=== PATIENT | male | born 1980 | race Caucasian/White ===

== ENCOUNTER 2024-05-17 08:53 | Emergency (ER) | payer OTHER, SELFPAY ==
--- NOTE | 2024-05-17 09:15 | ED.URI ---
HPI - URI/Sore Throat General Chief Complaint: Nausea/Vomiting/Diarrhea Stated Complaint: flu like Source: patient and RN notes reviewed Mode of arrival: ambulatory Limitations: no limitations History of Present Illness HPI Narrative: 44-year-old male presented for complaint of nausea, vomiting, diarrhea and subjective fever. Onset yesterday. Last emesis just prior to arrival. Says younger children have similar symptoms. Patient denies abdominal pain, hematochezia, melena, cough, shortness of breath, sore throat, or lethargy. Took leftover ondansetron and Pepto but this did not help. MD elicited complaint: cough Related Data Allergies Allergy/AdvReac Type Severity Reaction Status Date / Time No Known Allergies Allergy Verified 05/17/24 09:30 Review of Systems Review of Systems: ROS per HPI All systems reviewed & are unremarkable except as noted in HPI and below PMFSH Past Medical History Medical History (Updated 05/17/24 @ 09:41 by Rosaura Elizondo, RICKI) Hypertension Comments At time of signature, I have reviewed and agree with nursing past medical, surgical, social and family history unless otherwise noted. Please see nursing chart for further information. There is no relevant family history pertinent to the presenting complaint Exam Narrative: GENERAL: mildly Ill-appearing, nontoxic no acute distress. EYES: conjunctivae clear ENT: Mucous membranes moist. TM pearly hess with dull light reflex bilaterally; no tragal tenderness. Oropharynx not erythematous without lesions or exudate, no drooling, no hoarseness, no trismus, uvula midline. CHEST: Clear to auscultation, breath sounds equal. HEART: Regular rate and rhythm. ABD: Soft, nontender, positive bowel sounds SKIN: Warm, dry NEURO: Alert and oriented x3. Course Course Emergency Course: Patient is aware of diagnosis, understands and agrees to treatment plan. Anticipatory guidance given. Patient agrees to follow-up as directed and is aware of reasons to seek care at the emergency department. Portions of this record may have been created with voice recognition software Level of Care: Express Care Visit Vital Signs Vital signs: Vital Signs Temperature 97.6 F 05/17/24 09:17 Pulse Rate 103 H 05/17/24 09:17 Respiratory Rate 18 05/17/24 09:17 Blood Pressure 116/73 05/17/24 09:17 Pulse Oximetry 98 05/17/24 09:17 Oxygen Delivery Room Air 05/17/24 09:17 Temperature 97.6 F 05/17/24 09:17 Pulse Rate 103 H 05/17/24 09:17 Respiratory Rate 18 05/17/24 09:17 Blood Pressure 116/73 05/17/24 09:17 Pulse Oximetry 98 05/17/24 09:17 Oxygen Delivery Room Air 05/17/24 09:17 reviewed MDM - URI/Sore Throat MDM Narrative Medical decision making narrative: Discussed physical exam findings consistent with viral syndrome. Patient stated ondansetron does not work after given in clinic today. Rx metoclopramide and famotidine sent. Advised supportive measures and signs/symptoms to go to the ER. Pt is appropriate for outpt treatment and f/u. Request work note for the remainder of the week. Differential Diagnosis Differential diagnosis: Likely upper respiratory infection, sinusitis, viral infection, influenza and other (gastroenteritis) Lab Data Labs: Lab Results 05/17/24 Range/Units 09:35 POC Influenza A Ag Negative (Negative) POC Influenza B Ag Negative (Negative) POC SARS CoV-2 Ag Negative (Negative) Discharge Plan Discharge Clinical Impression: Nausea vomiting and diarrhea Patient Disposition: Home, Self-Care Condition: Stable Instructions: Gastroenteritis (ED) Additional Instructions: Flu and COVID negative Stay hydrated. Take small sips of fluid containing electrolytes frequently. Clear liquids (broth, jello, tea, sprite, pedialyte) [place] foods (bananas, rice, applesauce, toast, crackers) Avoid fatty, greasy, fried or spicy foods. Limit dairy until symptoms are improved. [id number] Imodium according to package directions for diarrhea Recommend probiotic such as align or lactobacillus to help with symptoms. You should go to the hospital if you experience persistent nausea and vomiting that does not resolve and does not allow you to tolerate any food or fluids, fevers, increasing abdominal pain, persistent diarrhea, dizziness, fainting, or for any other concerns. Follow up with primary care provider in 3 days. Patient Language: Yakut Prescriptions: New famotidine [Pepcid] 40 mg tablet 40 mg PO DAILY Qty: 10 0RF metoclopramide HCl 10 mg tablet 10 mg PO Q6H PRN (Reason: nausea and vomiting) Qty: 10 0RF Follow-up/Referrals: STEPHEN,MAGGI, M.D. [Primary Care Provider] - Stand Alone Forms: Work/School Release IP Time of Disposition: 09:40
[2024-05-17 09:17] VITALS: BP 116/73; PULSE 103; RESP 18; TEMP 36.4; O2SAT 98
--- OUTSIDE RECORDS SUMMARY | 2024-05-17 09:21 | XMS_ITS | Clinical Summary ---
Author Organization [facility] Address [facility] [place] [address] Care Team Providers Care Repairer Controller Tester Name Role Phone Uriel Osborn MD Primary Care Provider + Allergies No known active allergies Medications clindamycin (CLEOCIN T) 1 % external solutionIndication s:Primary hypertension,Folli culitis Apply topically 2 (two) times daily. 60 mL 1 4 Active lisinopril (PRINIVIL) 20 MG tabletIndications: Primary hypertension TAKE ONE TABLET BY MOUTH DAILY 90 tablet 1 4 Active atorvastatin (LIPITOR) 20 MG tabletIndications: Hyperlipidemia, unspecified hyperlipidemia type TAKE ONE TABLET BY MOUTH DAILY 90 tablet 1 4 Active ondansetron (ZOFRAN-ODT) 4 MG disintegrating tabletIndications: Nausea and vomiting, unspecified vomiting type Take 1 tablet (4 mg total) by mouth 4 (four) times daily as needed for Nausea. 20 tablet 5 Active Active Problems Problem Noted Date Diagnosed Date Primary hypertension 04/25/2024 Dyslipidemia 04/25/2024 Encounters Date Type Department Care Team Description 04/25/2024 9:40 AM SHOE PARTS CASER Office Visit [facility] [address] [place] [address] Ofe Parker, MYLES Body Aches (X 1 day/); Cough; Vomiting; Diarrhea; Sore Throat 04/25/2024 Travel 03/17/2024 Telephone [facility] [address] [place] [address] Uriel Osborn MD Referral 03/15/2024 Telephone [facility] [address] [facility] [place] [address] Uriel Osborn MD Results 03/14/2024 4:13 PM SHOE PARTS CASER - 03/14/2024 11:59 PM SHOE PARTS CASER Hospital Encounter [facility] [address] [place] [address] Uriel Osborn MD Discharge Disposition: Home or Self Care (Routine Discharge) 03/14/2024 4:00 PM SHOE PARTS CASER Office Visit [facility] [address] [facility] [place] [address] Uriel Osborn MD Hypertension Follow Up; Other (C/O headaches/); Referral Request (vasectomy) 03/14/2024 Travel 03/04/2024 Scan [facility] Scanned, [facility] from Last 3 Months Immunizations Name Administration Dates Next Due Influenza Adult (Generic) 01/24/2022,01/02/2021 MODERNA COVID-19 BIVALENT (12+), MRNA, LNP-S, PF 01/24/2022 MODERNA COVID-19 (12+) MRNA, LNP-S, PF, 100 MCG/ 0.5 ML DOSE 07/03/2020,06/05/2020 MODERNA COVID-19 ([employer] JOSE), MRNA, LNP-S, PF, 50 MCG/ 0.25 ML DOSE 03/13/2021 Family History Medical History Relation Comments Diabetes Brother Diabetes Maternal Uncle Relation Status Comments Brother Maternal Uncle Social History Tobacco Use Types Packs/Day Years Used Date Smoking Tobacco: Former Cigarettes Passive Smoke Exposure: Past Tobacco Cessation:Counseling Given: No PHQ-2 Answer Date Recorded Patient Health Questionnaire-2 Score 0 04/25/2024 Sex and Gender Information Value Date Recorded Sex Assigned at Not on file Legal Sex Male 12:05 PM CDT Gender Identity Not on file Sexual Orientation Not on file Last Filed Vital Signs Vital Sign Reading Time Taken Comments Blood Pressure 122/71 04/25/2024 9:42 AM SHOE PARTS CASER Pulse 70 04/25/2024 9:42 AM SHOE PARTS CASER Temperature 36.9 C (98.4 F) 04/25/2024 9:42 AM SHOE PARTS CASER Respiratory Rate 20 04/25/2024 9:42 AM SHOE PARTS CASER Oxygen Saturation 98% 04/25/2024 9:42 AM SHOE PARTS CASER Inhaled Oxygen Concentration - - Weight 104.4 kg (230 lb 2 oz) 04/25/2024 9:42 AM SHOE PARTS CASER Height 177.8 cm (5' 10 ) 04/25/2024 9:42 AM SHOE PARTS CASER Body Mass Index 33.02 04/25/2024 9:42 AM SHOE PARTS CASER Plan of Treatment Health Maintenance Due Date Last Done Comments Annual Physical 1985 Hepatitis C 2000 DTaP, Tdap and Td Vaccines (1 - Tdap) 2001 Hepatitis B Vaccines (1 of 3 - 19+ 3-dose series) 2001 COVID-19 Vaccine ( - season) 2023 01/24/2022, 03/13/2021, 07/03/2020, Additional history exists Influenza Adult (#1) 2023 01/24/2022, 01/03/20 21 PHQ-2 ([facility]) Completed 04/25/2024 HPV Vaccines Aged Out No longer eligi ble based on patient's age to complete this topic Meningococcal B Vaccine Aged Out No l onger eligible based on patient's age to complete this topic Meningococcal Vaccine Aged Out No lacy rossana eligible based on patient's age to complete this topic Pneumococcal Vaccine: Pediatrics (0 to 5 Years) and At-Risk Patients (6 to 64 Years) Aged Out No longer eligible based on patient's age to complete this topic RSV Immunizations Under 20 Months Aged Out No longer eligible based on patient's age to complete this topic Procedures Procedure Name Priority Date/Time Associated Diagnosis Comments STREP A RAPID Routine 04/25/2024 Viral gastroenteritis CORONAVIRUS (COVID-19) INFLUENZA A & B ANTIGEN IA PANEL Routine 04/25/2024 Viral gastroenteritis LIPID PANEL Routine 03/14/2024 4:14 PM SHOE PARTS CASER Hyperlipidemia, unspecified hyperlipidemia type COMPREHENSIVE METABOLIC PANEL Routine 03/14/2024 4:14 PM SHOE PARTS CASER Hyperlipidemia, unspecified hyperlipidemia type from Last 3 Months Results * CORONAVIRUS (COVID-19) INFLUENZA A & B ANTIGEN IA PANEL (04/25/2024) CORONAVIRUS ANTIGEN IA NEGATIVE NEGATIVE [facility] ([address]), [place] INFLUENZA A NEGATIVE NEGATIVE [facility] ([address]01), [place] INFLUENZA B NEGATIVE NEGATIVE [facility] ([address]), [place] Internal Control: VALID VALID [facility] ([address]), [place] NASAL STRUCTURE / Unknown 04/25/2024 us Ofe Parker NP MICROBIOLOGY - GENERAL ORDERABL ES Final Result [facility] ([address]), [place] [facility] [place] [address], [place] [phone] * STREP A RAPID (04/25/2024) Pathologist [facility] RAPID STREP TEST NEGATIVE NEGATIVE [facility] ([facility]), [place] Internal Control: VALID VALID [facility] ([address]01), [place] STRUCTURE OF ANTERIOR PORTION OF NECK / Unknown 04/25/2024 us Ofe Parker NP MICROBIOLOGY - GENERAL ORDERABL ES Final Result [facility] ([address]), [place] [facility] [place] [address], [place] [phone] * (ABNORMAL) COMPREHENSIVE METABOLIC PANEL (03/14/2024 4:14 PM SHOE PARTS CASER) Pathologist [facility] GLUCOSE 104(H) 70 - 99 MG/DL 03/14/2024 5:02 PM SHOE PARTS CASER [facility] BUN 10 7 - 18 MG/DL 03/14/2024 5:02 PM SHOE PARTS CASER [facility] CREATININE S/P/B 1.00 0.7 - 1.3 MG/DL 03/14/2024 5:02 PM [facility] SODIUM S/P/B 136 136 - 145 MMOL/L 03/14/2024 5:02 PM [facility] POTASSIUM S/P/B 3.6 3.5 - 5.1 MMOL/L 03/14/2024 5:02 PM [facility] CHLORIDE S/P/B 100 100 - 108 MMOL/L 03/14/2024 5:02 PM [facility] CO2 30.1 21 - 32 MMOL/L 03/14/2024 5:02 PM [facility] CALCIUM S/P/B 8.8 8.5 - 10.1 MG/DL 03/14/2024 5:02 PM [facility] BILIRUBIN TOTAL S/P/B 0.3 0.2 - 1.2 MG/DL 03/14/2024 5:02 PM [facility] Comment: THIS ASSAY IS NOT RECOMMENDED FOR PATIENTS UNDERGOING TREATMENT WITH ELTROMBOPAG DUE TO THE POTENTIAL FOR FALSELY ELEVATED RESULTS. TOTAL PROTEIN S/P/B 7.5 6.4 - 8.2 G/DL 03/14/2024 5:02 PM [facility] ALBUMIN S/P/B 4.1 3.4 - 5.0 G/DL 03/14/2024 5:02 PM [facility] AST 16 15 - 37 U/L 03/14/2024 5:02 PM [facility] ALT 44 16 - 60 U/L 03/14/2024 5:02 PM [facility] ALKALINE PHOSPHATASE S/P/B 85 50 - 136 U/L 03/14/2024 5:02 PM [facility] ANION GAP 5.9 5 - 15 MMOL/L 03/14/2024 5:02 PM [facility] BUN CREATININE RATIO 10.0 6 - 26 03/14/2024 5:02 PM [facility] A/G RATIO 1.2 1.0 - 2.0 RATIO 03/14/2024 5:02 PM [facility] GFR ESTIMATE >90 >90 ML/MIN/1.7 3 M2 03/14/2024 5:02 PM [facility] Comment: NOTE: eGFR is not calculated for patients <18 years of age. This is an estimated GFR calculation using the new CKD EPI creatinine equation without race and so does not require a correction factor for race. This estimated GFR should not be used for calculating drug doses. 03/14/2024 4:14 PM SHOE PARTS CASER Uriel Osborn MD LABORATORY Final Re sult [facility] [address] [place] [address], * (ABNORMAL) LIPID PANEL (03/14/2024 4:14 PM SHOE PARTS CASER) CHOLESTEROL 171 <200 MG/DL 03/14/2024 5:02 PM [facility] TRIGLYCERIDES 214(H) <150 MG/DL 03/14/2024 5:02 PM [facility] HDL 44 >40.0 MG/DL 03/14/2024 5:02 PM [facility] LDL (CALCULATED) 84 <100 MG/DL 03/14/2024 5:02 PM [facility] NON HDL CHOLESTEROL 127 <130 MG/DL 03/14/2024 5:02 PM [facility] Comment: NOTE: WHEN THE TRIGLYCERIDES ARE >200 mg/dL, NON HDL C IS A SECONDARY TARGET OF THERAPY, WITH A GOAL 30 mg/dL HIGHER THAN THE IDENTIFIED LDL C GOAL. CHOL/HDL RATIO 3.9 0.0 - 4.5 03/14/2024 5:02 PM SHOE PARTS CASER [facility] VLDL CALCULATION 43 5 - 55 MG/DL 03/14/2024 5:02 PM SHOE PARTS CASER [facility] LIPID INTERPRETATION 03/14/2024 5:02 PM SHOE PARTS CASER [facility] Comment: [facility] CONCENSUS REPORT RECOMMENDATIONS: ADULT CHILD LOW RISK: CHOLESTEROL <200 <170 TRIGLYCERIDE <150 --- HDL >=60 --- LDL <100 <110 BORDERLINE: CHOLESTEROL 200-239 170-199 TRIGLYCERIDE 150-199 --- HDL 40-59 --- LDL 100-159 110-129 HIGH RISK: CHOLESTEROL >=240 >=200 TRIGLYCERIDE >=200 --- HDL <40 --- LDL >=160 >=130 03/14/2024 4:14 PM SHOE PARTS CASER Uriel Osborn MD LABORATORY Final Re sult [facility] [address] [place] [address], from Last 3 Months Insurance [facility] Care Teams Repairer Controller Tester Relationship Specialty Start Date End Date Uriel Osborn MD [address] [place] [address] PCP - General FAMILY PRACTICE 3/22/24
--- OUTSIDE RECORDS SUMMARY | 2024-05-17 09:21 | XMS_ITS | Continuity of Care Document ---
Author Organization [facility] Address [address] [place] [address] Phone Care Team Providers Care Relay Repairer Name Role Phone Unavailable Unavailable Unavailable Medications Medication Instructions Dosage Effective Dates (start - stop) Status Comments [place] 5 mg-325 mg Tab Take 1 or 2 tablet s by mouth every 6-8 hrs prn for pain. - Active Advance Directives Directive Yes / No Effective Date File Name No Information Encounters Encounter Description Practice Location Reason(s) For Visit Diagnoses Date Provider Providers Copied on Encounter [facility], [address] [place] [address], [id number], tel:[phone] [facility] No Information 9 No Information Referring Provider: [address], [place], [address]. tel:[phone] [facility], [address] [place] [address], [id number], tel:[phone] [facility] No Information 9 Raphael Rodriguez. [address] [place] [address], [id number], . tel:[phone] Referring Provider: [address], [place], [address]. tel:[phone] Family History Family Member Type Diagnosis Age At Onset No Information Payers Payer name Insurance type Covered libertarian ID Authoriza tion(s) [facility] CI [id number] Social History Type Description Quantity Date Captured Comments Sex Male Smoking Status No Information Chief Complaint And Reason For Visit No Information Reason For Referral Reason For Referral No Information History Of Present Illness Encounter Date Complaint History Of Prese nt Illness No Information Functional Status Date Functional Assessmen t No Information Instructions Date Instruction Additional Infor mation No Information Assessments Type Assessment Date No Information Patient Care Teams Name Effective Dates (start - stop) Status Members No Information
--- OUTSIDE RECORDS SUMMARY | 2024-05-17 09:31 | XMS_ITS | Continuity of Care Document ---
Author Organization [facility] Address [address] [place] [address] Phone Care Team Providers Care Java Developer Analyst Name Role Phone Unavailable Unavailable Unavailable Medications Medication Instructions Dosage Effective Dates (start - stop) Status Comments [place] 5 mg-325 mg Tab Take 1 or 2 tablet s by mouth every 6-8 hrs prn for pain. - Active Advance Directives Directive Yes / No Effective Date File Name No Information Encounters Encounter Description Practice Location Reason(s) For Visit Diagnoses Date Provider Providers Copied on Encounter [facility], [address] [place] [address], [id number], tel:[phone] [facility] No Information 9 No Information Referring Provider: [address], [place], [address]. tel:[phone] [facility], [address] [place] [address], [id number], tel:[phone] [facility] No Information 9 Raphael Rodriguez. [address] [place] [address], [id number], . tel:[phone] Referring Provider: [address], [place], [address]. tel:[phone] Family History Family Member Type Diagnosis Age At Onset No Information Payers Payer name Insurance type Covered constitution party ID Authoriza tion(s) [facility] CI [id number] Social History Type Description Quantity Date Captured [...]
[2024-05-17 09:37] LABS: EDCOVIDSCREEN Negative (Negative); EDINFLUASCREEN Negative (Negative); EDINFLUBSCREEN Negative (Negative)
[2024-05-17] MEDS: ONDANSETRON HCL ODT 4 MG TABLET SUBLINGUAL (09:44)
== END 2024-05-17 10:09 | disposition home or self-care (01) ==
PROVIDERS: Emergency Provider Nurse Practitioner Family; PCP Family Medicine
DX: R11.2 Nausea with vomiting, unspecified (principal); R19.7 Diarrhea, unspecified; Z20.822 Contact with and (suspected) exposure to COVID-19; I10 Essential (primary) hypertension
CPT/HCPCS: 87426; 87804; 99213; A9270; G0463